=== PATIENT | female | born 1970 | race Caucasian/White ===

== ENCOUNTER 2022-01-14 09:26 | Emergency (ER) | payer MEDICAID, OTHER ==
[~2022-01-14] VITALS: Ht 160 cm; Wt 70.3 kg
--- NOTE | 2022-01-14 09:45 | NUR ---
RECIVED PT FROM HOME 51YRS FEMALE C/O ABDOMINAL PAIN AND BACK PAIN FOR 3 DAY
[2022-01-14] MEDS ORDERED: HYDROCODONE/APAP 5/325MG TABLET PO ONE (10:00)
[2022-01-14] MEDS ORDERED: CT SWABBABLE VALVE TRANS SET 1 EA INFUS.SET MC ONE (10:20)
[2022-01-14] MEDS ORDERED: IOHEXOL-350 100 ML VIAL IV ONE (10:20)
[2022-01-14] MEDS ORDERED: IV NS 0.9% 250 ML IV ONE (10:20)
[2022-01-14] MEDS ORDERED: HYDROCODONE/APAP 5/325MG TABLET ONE (10:37)
--- NOTE | 2022-01-14 10:45 | NUR ---
TO CT M[facility]O OF ABDOMIN [facility]
[2022-01-14 10:55] LABS: BASOPHILS % (AUTO) 0.6 % (0.0-2.0); EOSINOPHILS % (AUTO) 1.2 % (0.0-6.0); HEMATOCRIT 38 % (33-45); HEMOGLOBIN 12.3 g/dL (11.5-14.8); LYMPHOCYTES # (AUTO) 2.2 K/uL (0.8-4.8); MEAN CORPUSCULAR HGB CONC 33 g/dl (31.0-36.0); MEAN CORPUSCULAR VOLUME 83 fL (82-100); MONOCYTES # (AUTO) 0.8 K/uL (0.1-1.30); MONOCYTES % (AUTO) 9.5 % (2.0-12.0); NEUTROPHILS # (AUTO) 4.8 K/uL (1.8-8.9); NEUTROPHILS % (AUTO) 60.7 % (43.0-81.0); PLATELET COUNT (AUTO) 301 K/uL (150-450); RED BLOOD CELL COUNT(AUTO) 4.51 MIL/uL (4.0-5.2)
[2022-01-14 11:04] LABS: CALCIUM, SERUM 8.9 mg/dL (8.5-10.1); CARBON DIOXIDE 28 mmol/L (21-32); CHLORIDE 106 mmol/L (98-107); CREATININE 0.6 mg/dL (0.6-1.3); GLUCOSE 112 mg/dL (74-106); POTASSIUM 4.5 mmol/L (3.5-5.1); SODIUM SERUM 142 mmol/L (136-145); UREA NITROGEN, BLOOD 18 mg/dL (7-18)
[2022-01-14] MEDS ORDERED: ACET-2605 PO (13:29)
[2022-01-14] MEDS ORDERED: LIDO30AD10 TP (13:29)
--- NOTE | 2022-01-14 14:15 | NUR ---
The patient is alert and oriented x4. In room air and denies SOB. Respiration regular and unlabnored. IV removed. Catheter intact and site benign. Pressure and 4x4 applied to site. No bleeding noted.Patient discharged to home in stable condition. Written and verbal after care instructions given. Patient verbalizes understanding of instruction.
[2022-01-14 14:16] VITALS: BP 136/72
== END 2022-01-14 14:16 | disposition home or self-care (01) ==
LOC: ER 09:48
DX: R07.81 Pleurodynia (principal); E78.5 Hyperlipidemia, unspecified; F17.200 Nicotine dependence, unspecified, uncomplicated; Z79.899 Other long term (current) drug therapy
CPT/HCPCS: 36415; 71275; 80048; 84484; 85025; 93005; 99285; J7050; Q9967

== ENCOUNTER → 2024-06-19 | Emergency (ER) | payer MEDICAID, OTHER ==
[~2024-06-19] VITALS: Ht 160 cm; Wt 72.6 kg
[~2024-06-19] MED LIST: ACET-2605 PO; CYCL5TAB PO; CYCLOBENZAPRINE 10 MG TABLET ONE; KETOROLAC TROMETHAMINE INJ 30 MG/ML VIAL ONE; LIDO30AD10 TP; LIDOCAINE 5% (PATCH) 1 EA PATCH TP ONE; NAPR-1164 PO
[2024-06-19 11:07] VITALS: BP 141/84; TEMP 97.8
[2024-06-19] MEDS: CYCLOBENZAPRINE 10 MG TABLET PO ONE (11:32)
[2024-06-19] MEDS: KETOROLAC TROMETHAMINE INJ 30 MG/ML VIAL IM ONE (11:32)
[2024-06-19] MEDS: LIDOCAINE 5% (PATCH) 1 EA PATCH TP SCH (11:33)
[2024-06-19 11:35] VITALS: O2SAT 99
== END ==
LOC: ER 11:03
DX: M54.16 Radiculopathy, lumbar region (principal); F17.200 Nicotine dependence, unspecified, uncomplicated; E11.9 Type 2 diabetes mellitus without complications; I10 Essential (primary) hypertension
CPT/HCPCS: 99283; 96372; J1885